=== PATIENT | female | born 1960 | race Caucasian/White ===

== ENCOUNTER → 2017-01-31 | Outpatient (CLI) | payer OTHER ==
--- NOTE | 2017-01-31 09:29 | MR ---
EXAMINATION TYPE: MR cervical spine wo con DATE OF EXAM: 01/31/2017 8:31 AM COMPARISON: NONE HISTORY: cervicalgia TECHNIQUE: Multiplanar, multisequence images of the cervical spine were acquired. C2-C3: No evidence for degenerative disc disease. No disc bulge/herniation or protrusion. No Canal stenosis. Foramina are patent bilaterally. C3-C4: No evidence for degenerative disc disease. No disc bulge/herniation or protrusion. No Canal stenosis. Foramina are patent bilaterally. C4-C5: Mild decreased signal and loss of height compatible with the disc desiccation. Posterior disc bulge with annular tear. No evidence for lulu herniation or protrusion. No central stenosis or pola inal encroachment. C5-C6: Moderate disc desiccation noted. Posterior disc bulge with encapsulating spur resulting in sae d disc. There is effacement of the ventral thecal sac and distortion of the ventral spinal cord witho ut contact. While there is constriction of the thecal sac lulu stenosis is not present. Degenerative change of the cervical apophyseal joints resulting in right greater than left foraminal encroachment . C6-C7: Moderate disc desiccation with posterior disc bulge broad-based effacing the ventral thecal sa c. Constriction of the thecal sac without overt stenosis at this time. Bilateral foraminal encroachme nt noted. C7-T1: No evidence for degenerative disc disease. No disc bulge/herniation or protrusion. No Canal stenosis. Foramina are patent bilaterally. Cervical segments are intact. There is normal alignment. Cervical spinal cord is of normal signal. Craniovertebral junction relationships are within normal limits. Ventral spondylosis identified. IMPRESSION: 1. Multilevel degenerative disc disease with posterior disc bulging and hard disc primarily at C5-6. Effacement of the thecal sac in constriction without overt stenosis at this time. Foraminal encroachm ent is noted.
== END | disposition home or self-care (01) ==
LOC: RADMRIMAIN 07:58
PROVIDERS: ATTEND Psychiatry & Neurology Neurology
DX: M50.31 Other cervical disc degeneration, high cervical region (principal)
CPT/HCPCS: 72141